=== PATIENT | male | born 1955 | race Caucasian/White ===

== ENCOUNTER 2016-09-01 11:48 | Inpatient (IN) | payer OTHER ==
--- NOTE | ~2016-09-01 | CR20 ---
[facility] A Service of [facility] & [facility] RADIOLOGY TEXT RESULTS PATIENT: CONRADO HARRIS LOCATION: [facility] : 53 UNIT #: [id number] AGE: [address]: Karan Linder DO SEX: M ORDER DR: [id number] [facility] [address] [address] [place], [place] [address] [id number] E MR#: [id number] Acc #: [id number] NAME: CONRADO HARRIS : 1955 SEX: M STUDY DATE/TIME: 09/01/2016 12:16 UNIT: CFTX ROOM: STUDY DESCRIPTION: CR Ankle Min 3 Views Lt Attending Physician: Selena Merritt P.A.-C. Ordering Physician: Selena Merritt P.A.-C. Primary Care Physician: Primary Care Physician No MEDICAL IMAGING REPORT This report is preliminary unless electronic signature is present EXAM Ankle left 3 views 09/01/2016 1216 hours HISTORY 60-year-old man with pain and swelling of the ankle. Pain last night with difficulty weightbearing. History of fracture 30 years ago with fixation. COMPARISON None available. FINDINGS AP, lateral and oblique views demonstrate a plate and screw fixator through the distal fibula with no evidence of acute fracture, hardware failure or infection around the hardware. There is diffuse soft tissue swelling medially and laterally. There is cystic change in the medial malleolus and some spurring at the ankle joint suggesting secondary osteoarthritis. The talar dome is intact. IMPRESSION 1. Diffuse soft tissue swelling medial greater than lateral with plate and screw fixation of prior, healed distal fibular fracture. No hardware failure or acute fracture is seen. 2. There is spurring and degenerative change at the ankle joint with talar dome intact. 3. There is cystic lucency through the medial malleolus with overlying soft tissue swelling. This is felt likely chronic degenerative change. If the patient has an open wound, consider osteomyelitis. STAT * RESULT Dictated by... [facility] A Service of [facility] & [facility] RADIOLOGY TEXT RESULTS PATIENT: CONRADO HARRIS LOCATION: [facility] : 53 UNIT #: [id number] AGE: [address]: Karan Linder DO SEX: M ORDER DR: Jeanine Leo M.D. THIS IS AN ELECTRONICALLY VERIFIED REPORT Jeanine Leo M.D. at 09/01/2016 2:31 PM DIAMOND/ciara TD: 09/01/2016 12:55 JOB #: [id number] MEDICAL IMAGING REPORT Page 1 of 1 COPY
--- NOTE | ~2016-09-01 | US85 ---
[facility] A Service of [facility] / [facility] RADIOLOGY TEXT RESULTS PATIENT: CONRADO HARRIS LOCATION: [facility] : 53 UNIT #: [id number] AGE: [address]: Fadia Almonte MD SEX: M ORDER DR: [id number] [place] [id number] [facility]. [place], [place] [address] [id number] E MR#: [id number] Acc #: [id number] NAME: CONRADO HARRIS : 1955 SEX: M STUDY DATE/TIME: 09/01/2016 15:00 UNIT: [facility] ROOM: STUDY DESCRIPTION: [employer] Attending Physician: Karan Linder D.O. Ordering Physician: Karan Linder D.O. Primary Care Physician: No Primary Care Physician MEDICAL IMAGING REPORT This report is preliminary unless electronic signature is present EXAM Left lower extremity Doppler venous ultrasound DATE 09/01/2016 HISTORY Left lower extremity swelling/edema for 1 day. COMPARISON None. TECHNIQUE Venous ultrasound examination of the left lower extremity was performed using grayscale, spectral Doppler and color flow Doppler imaging. FINDINGS The examination is negative. There is no evidence of left lower extremity deep venous thrombus from the groin to the lower calf. Visualized greater saphenous vein is also patent. IMPRESSION Negative examination. No evidence of left lower extremity deep venous thrombosis. Dictated by... Britni Wu M.D. THIS IS AN ELECTRONICALLY VERIFIED REPORT Britni Wu M.D. at 09/02/2016 6:13 AM LLPeter/maren [facility] A Service [facility] RADIOLOGY TEXT RESULTS PATIENT: CONRADO HARRIS LOCATION: [facility] 475-01 : 53 UNIT #: [id number] AGE: [address]: Fadia Almonte MD SEX: M ORDER DR: TD: 09/01/2016 16:10 JOB #: [id number] MEDICAL IMAGING REPORT Page 1 of 1 COPY
--- NOTE | ~2016-09-01 | DS ---
Unit #: [id number] #: [id number] Patient: CONRADO QUINTERO [id number] [address] [address] [id number] I MR#: [id number] NAME: CONRADO QUINTERO ROOM: 475 Age: Sex: M Admission Date: 09/01/2016 : 1955 Discharge Date: 09/02/2016 Attending Physician: Gudelia Almonte M.D. Primary Care Physician: Primary Care Physician No DISCHARGE SUMMARY ADMITTING DIAGNOSIS Left ankle swelling and pain. DISCHARGE DIAGNOSIS Left ankle pain/infection. ATTENDING AND SERVICES CARING FOR PATIENT Gudelia Almonte MD PROCEDURE Aspiration of left ankle joint. HISTORY Mr. Quintero is a 60-year-old white male who presented to the emergency room for complaints of left ankle pain and swelling, which started one day ago. The patient reports he has noticed swelling and redness surrounding his ankle joint intermittently for some time now. The patient denies new injury or trauma to the ankle. He does report pain with movement. The patient has had a history of prior injury to his left ankle approximately 30 years ago, where a plate/screws were placed in the left distal fibula. The patient had been unable to bear weight on his left lower extremity for the past day. He does live alone, and he has been a smoker for the past 26 years. He works in construction. The patient's left ankle joint was aspirated in the emergency room and a STAT Gram stain, total cell count with diff, crystal analysis, aerobic culture and sensitivities and anaerobic culture and sensitivities of the joint aspirate was performed. Uric acid level was drawn on 09/01 in the emergency room and found to be 6.2. BMP was within normal limits, white blood cell count was 10.8, and the CRP was 4.5. And CBC, CRP and BMP labs were instructed to be ordered and the patient was started on IV vancomycin and Zosyn, as well as normal saline fluids upon admittance from the emergency room. The patient was placed NPO and was put on ibuprofen 600 mg for pain and told to be nonweightbearing to his left lower extremity. On 09/02, the patient appeared to be doing very well. He stated the pain and swelling in his left ankle had significantly improved since being on the antibiotics. He reported increased range of motion in his toes and ankle. On 09/02, his Gram stain revealed occasional white blood cells, no organisms visible, hazy fluid and TNC of 20,921. CBC was within normal limits, BMP was within normal limits, and the CRP was 6.3. After labs returned, the patient was found stable for discharge. In regards to imaging, while admitted, a Doppler of the left lower extremity was performed and found to be negative, with no evidence of DVT. Unit #: [id number] #: [id number] Patient: CONRADO QUINTERO X-ray of the left ankle revealed diffuse soft tissue swelling with plate/screw fixation of the previously healed fracture. No hardware failure or acute fracture seen. Cystic lucency through the medial malleolus with soft tissue swelling was evident. CONDITION AT DISCHARGE Stable. DISPOSITION The patient will be discharged home. He may weight-bear as tolerated of the left lower extremity and use crutches if needed. He is to return to clinic in 7 days for follow up. DISCHARGE MEDICATIONS 1. Keflex 500 mg 1 tab p.o. q.i.d. x10 days, dispense 40, zero refills. 2. Ibuprofen [id number] p.r.n. pain. DIET The patient may resume normal diet. DISCHARGE INSTRUCTIONS Per discussion with Dr. Almonte, the patient may be discharged home today. The patient may now weight-bear as tolerated to his left lower extremity. We would like for him to follow up in the office with Dr. Almonte in one week. He is to call for an appointment. A script for oral antibiotics or Keflex was written for him to take 4 times daily for 10 days. We would also like for him to use ibuprofen as needed for pain relief. The patient should call our clinic prior to his scheduled office visit should any further questions or concerns. Dictated by... Priscilla Corado PA-C for Maida Flores TD: 09/07/2016 20:57 JOB #: [id number] CC: Vaishali Oakley (Vascular Technician) DISCHARGE SUMMARY Page 1 of 1 X X DISCHARGE SUMMARY
--- NOTE | ~2016-09-01 | HP ---
Unit #: [id number] #: [id number] Patient: CONRADO HARRIS [id number] [address] [place], [place] [address] [id number] I MR#: [id number] NAME: CONRADO HARRIS ROOM: 60586 Age: 60 Sex: M Admission Date: 09/01/2016 : 1955 Attending Physician: Gudelia Almonte M.D. Primary Care Physician: No Primary Care Physician HISTORY AND PHYSICAL CHIEF COMPLAINT Left ankle swelling/pain. HISTORY OF PRESENT ILLNESS This is a 60-year-old white male who presented to the emergency room today for complaints of left ankle pain which presented/started last night. The patient reports he noticed the swelling and redness surrounding his ankle joint. The patient denies new injury/trauma. He does report pain with movement. Patient has a history of prior injury to his left ankle, approximately 30 years ago. A plate/screws were placed in his distal fibula. The patient state he is unable to bear weight on his left lower extremity at this time. Patient reports that he lives alone. He is a previous smoker of about 26 years and currently works in construction. PAST MEDICAL HISTORY None. PAST SURGICAL HISTORY Ankle surgery approximately 30 years ago with plate placed in distal fibula. ALLERGIES No known drug allergies. HOME MEDICATIONS None. SOCIAL HISTORY Previous smoker, quit approximately 26 years ago, lives alone, works in construction. FAMILY HISTORY Not relevant. REVIEW OF SYSTEMS Negative except for symptoms reported in HPI. PHYSICAL EXAMINATION GENERAL: On physical exam he is in no acute distress, alert and oriented x3. HEART: Regular rate and rhythm. LUNGS: Nonlabored breathing. MUSCULOSKELETAL: Left lower extremity palpable dorsalis pedis and Unit #: [id number] #: [id number] Patient: CONRADO HARRIS posterior tibialis pulses, limited range of motion of the ankle joint secondary to pain, sluggish capillary refill, moderate swelling/warmth surrounding the medial and anterior ankle joint. Neurovascularly intact. Calf nontender. PSYCHIATRIC: Mood/affect within normal limits. NEUROLOGIC: Cranial nerves intact. DIAGNOSTIC STUDIES LABORATORY: Uric acid 6.2, BMP within normal limits, white blood cell count 10.8, CRP of 4.5. IMAGING: Ultrasound/Doppler of the left lower extremity negative exam, no evidence of DVT. X-ray of the left lower extremity: Diffuse soft tissue swelling with plate/screw fixation of a prior healed fracture, no hardware failure/acute fracture seen, spurring/degenerative change noted, talar dome intact. Cystic lucency through the medial malleolus with soft tissue swelling, likely chronic changes. ASSESSMENT AND PLAN A 60-year-old white male who we will admit today to 4C to Dr. Almonte to rule out septic joint. The patient's left ankle joint was aspirated today in the emergency room and aspirate was sent for a STAT Gram stain, total cell count, aerobic and anaerobic cultures of the aspirate. Will start IV fluids and IV antibiotics. The patient is to remain nonweightbearing to his left lower extremity. He is to have ibuprofen 600 mg q.6 h. p.r.n. pain. The patient is to remain n.p.o. pending labs. In the a.m. we would like a CBC, CRP and BMP to also be ordered. Dictated by Priscilla Corado PA-C for Maida Flores/asha TD: 09/01/2016 21:31 JOB #: [id number] CC: [facility] HISTORY AND PHYSICAL Page 1 of 1 X X HISTORY AND PHYSICAL
--- NOTE | ~2016-09-01 | DS ---
Unit #: [id number] #: [id number] Patient: CONRADO HARRIS [id number] [address] [place], [place] [address] [id number] MR#: [id number] NAME: CONRADO HARRIS ROOM: [facility] Age: 60 Sex: M Admission Date: 09/01/2016 : 1955 Discharge Date: 09/02/2016 Attending Physician: Gudelia Almonte M.D. Primary Care Physician: No Primary Care Physician DISCHARGE SUMMARY ADMITTING DIAGNOSIS Left ankle swelling and pain. DISCHARGE DIAGNOSIS Left ankle pain/infection. INVASIVE DIAGNOSTIC PROCEDURES None. BRIEF HISTORY A 60-year-old white male who presented to the emergency room for complaints of left ankles pain and swelling, which started one day ago. The patient reports he has noticed swelling and redness surrounding his ankle joint intermittently for some time now. The patient denies new injury or trauma to the ankle. He does report pain with movement. The patient has had a history of prior injury to his left ankle approximately 30 years ago where a plate/screws were placed in the distal fibula. The patient had been unable to bear weight on his left lower extremity. He does live alone, and he is a smoker for the past 26 years. He works in construction. The patient's left ankle joint was aspirated and then we performed a STAT Gram stain, total cell count with dif, crystal analysis, aerobic C and S and anaerobic C and S of the joint aspirate. A uric acid level was drawn on 09/01 and was found to be 6.2. BMP was within normal limits, the white blood cells were 10.8, and the CRP was 4.5. In regard to imaging, an ultrasound/Doppler of the left lower extremity was found to be negative with no evidence of a DVT. X-ray of the left ankle revealed diffuse soft tissue swelling with plate/screw fixation of a previously healed fracture. No hardware failure or acute fracture seen. Cystic lucency through the medial malleolus with soft tissue swelling was evident. We did order an a.m. CBC, CRP and BMP, and the patient was started on IV vancomycin and Zosyn, as well as normal saline fluids. The patient was placed NPO and was put on ibuprofen 600 mg for pain and told to be nonweightbearing to his left lower extremity. On 09/02 the patient appeared to be doing very well. He stated the pain and swelling in his left ankle had significantly improved since being on the antibiotics. He reported increased range of motion in his toes and ankle. He stated that he was hesitant to bear weight on his left lower extremity. Unit #: [id number] #: [id number] Patient: CONRADO HARRIS On 09/02 his Gram stain revealed occasional white blood cells, no organism, hazy fluid and TNC of 20,921. CBC was within normal limits, BMP was within normal limits, and the CRP was 6.3. CONDITION AT DISCHARGE Stable. DISPOSITION The patient will be discharged home today. DISCHARGE MEDICATIONS 1. Keflex 500 mg 1 tab p.o. t.i.d. x10 days. We will dispense 30 with 0 refills. 2. He may use ibuprofen as needed for pain relief. DIET The patient may resume normal diet. DISCHARGE INSTRUCTIONS AND FOLLOWUP 1. Per discussion with Dr. Almonte, the patient may be discharged home today. He is stable to discharge from ortho standpoint. 2. The patient may now weightbear as tolerated to his left lower extremity. 3. We would like for him to follow up in the office with Dr. Almonte in 10-14 days. He is to call for an appointment. 4. A script for oral antibiotics (Keflex) was written for him to take 3 times daily for 10 days. We would also like for him to use ibuprofen as needed for pain relief. 5. The patient should call our clinic prior to his scheduled office visit for further questions or concerns. Dictated by... Priscilla Corado PA-C for Maida Flores/yohan TD: 09/05/2016 09:08 JOB #: [id number] DISCHARGE SUMMARY Page 1 of 1 X X DISCHARGE SUMMARY
--- NOTE | ~2016-09-01 | DS ---
Unit #: [id number] #: [id number] Patient: CONRADO HARRIS [id number] [address] [place], [place] [address] [id number] MR#: [id number] NAME: CONRADO HARRIS ROOM: [facility] Age: 60 Sex: M Admission Date: 09/01/2016 : 1955 Discharge Date: 09/02/2016 Attending Physician: Gudelia Almonte M.D. Primary Care Physician: Richa Primary Care Physician DISCHARGE SUMMARY REVISED REPORT ADDENDUM/CORRECTION ADMITTING DIAGNOSIS Left ankle swelling and pain. DISCHARGE DIAGNOSIS Left ankle pain/infection. INVASIVE DIAGNOSTIC PROCEDURES None. BRIEF HISTORY A 60-year-old white male who presented to the emergency room for complaints of left ankles pain and swelling, which started one day ago. The patient reports he has noticed swelling and redness surrounding his ankle joint intermittently for some time now. The patient denies new injury or trauma to the ankle. He does report pain with movement. The patient has had a history of prior injury to his left ankle approximately 30 years ago where a plate/screws were placed in the distal fibula. The patient had been unable to bear weight on his left lower extremity. He does live alone, and he is a smoker for the past 26 years. He works in construction. The patient's left ankle joint was aspirated and then we performed a STAT Gram stain, total cell count with dif, crystal analysis, aerobic C and S and anaerobic C and S of the joint aspirate. A uric acid level was drawn on 09/01 and was found to be 6.2. BMP was within normal limits, the white blood cells were 10.8, and the CRP was 4.5. In regard to imaging, an ultrasound/Doppler of the left lower extremity was found to be negative with no evidence of a DVT. X-ray of the left ankle revealed diffuse soft tissue swelling with plate/screw fixation of a previously healed fracture. No hardware failure or acute fracture seen. Cystic lucency through the medial malleolus with soft tissue swelling was evident. We did order an a.m. CBC, CRP and BMP, and the patient was started on IV vancomycin and Zosyn, as well as normal saline fluids. The patient was placed NPO and was put on ibuprofen 600 mg for pain and told to be nonweightbearing to his left lower extremity. On 09/02 the patient appeared to be doing very well. He stated the pain and swelling in his left ankle had significantly improved since being on the antibiotics. He Unit #: [id number] #: [id number] Patient: CONRADO HARRIS reported increased range of motion in his toes and ankle. He stated that he was hesitant to bear weight on his left lower extremity. On 09/02 his Gram stain revealed occasional white blood cells, no organism, hazy fluid and TNC of 20,921. CBC was within normal limits, BMP was within normal limits, and the CRP was 6.3. CONDITION AT DISCHARGE Stable. DISPOSITION The patient will be discharged home today. DISCHARGE MEDICATIONS 1. Keflex 500 mg one tab p.o. q.i.d. x10 days, dispense 40, zero refills. 2. Ibuprofen over the counter p.r.n. pain may be used. DIET The patient may resume normal diet. DISCHARGE INSTRUCTIONS AND FOLLOWUP 1. Per discussion with Dr. Almonte, the patient may be discharged home today. He is stable to discharge from ortho standpoint. 2. The patient may now weightbear as tolerated to his left lower extremity. 3. We would like for him to follow up in the office with Dr. Almonte in one week. He is to call for an appointment. 4. A script for oral antibiotics (Keflex) was written for him to take 3 times daily for 10 days. We would also like for him to use ibuprofen as needed for pain relief. 5. The patient should call our clinic prior to his scheduled office visit for further questions or concerns. Dictated by... Priscilla Corado PA-C for Gudelia Almonte M.D. BECKY/yohan TD: 09/05/2016 09:08 JOB #: [id number] ADDENDUM DISCHARGE INSTRUCTIONS After speaking further with Dr. Almonte, instead of following up in 10-14 days, we would like to see him back in our office in one week. ADDENDUM If you could go back into his note and change the discharge medication, we would like to change the dosage of the Keflex, so if you could totally remove the previously dictated Keflex dosing and replace it with this: DISCHARGE MEDICATIONS 1. Keflex 500 mg one tab p.o. q.i.d. x10 days, dispense 40, zero refills. 2. Ibuprofen over the counter p.r.n. pain may be used. Unit #: [id number] #: [id number] Patient: CONRADO HARRIS Dictated by... VIOLETTA Scanlon TD: 09/05/2016 09:15 JOB #: [id number] Dictated by... Priscilla Corado PA-C for Maida Flores TD: 09/05/2016 09:22 JOB #: [id number] CC: Navi/khurram Please Delete Vaishali Oakley DISCHARGE SUMMARY Page 1 of 1 X X DISCHARGE SUMMARY
[2016-09-01 13:51] LABS: BASOPHIL# 0.1 X10e3 (0-0.3); BASOPHIL% 0.6 % (0-2.5); EOSINOPHIL# 0.9 X10e3 (0-0.7); EOSINOPHIL% 8.4 % (0.0-7.0); HEMATOCRIT 44.2 % (38.0-50.0); HEMOGLOBIN 14.4 gm/dL (13.0-16.0); LYMPHOCYTE% 18.3 % (17.0-45.0); MEAN CELL VOLUME 87.7 FL (83-96); MEAN CORPUSCULAR HEMOGLOBIN 28.5 PG (28-34); MEAN CORPUSCULAR HGB CONC 32.5 g/dL (30-36); MONOCYTE# 0.9 X10e3 (0-1.0); MONOCYTE% 8.7 % (3.0-12.0); NEUTROPHIL# 6.9 X10e3 (1.5-7.1); PLATELET COUNT 243 X10e3 (140-420); RED BLOOD COUNT 5.05 X10e (3.90-5.60); RED CELL DISTRIBUTION WIDTH 13.6 % (11.0-15.5); WHITE BLOOD COUNT 10.8 X10e3 (4.0-10.5)
[2016-09-01 13:53] LABS: DIFF IND NO
[2016-09-01 14:32] LABS: CALCIUM SERUM 9.2 mg/dL (8.4-10.2); GLOM FILT RATE Estimated 80.3 mL/min (>60)
[2016-09-01 18:18] LABS: BF CRYSTAL EXAM NO CRYSTALS SEEN; BF TOTAL NUCLEATED CELL COUNT 20921 CMM (0-100); BODY FLUID APPEARANCE HAZY; BODY FLUID SOURCE SYNOVIAL
[2016-09-01 18:19] LABS: BODY FLUID RBC 15542 CMM
[2016-09-02 01:58] LABS: BASOPHIL% 0.6 % (0-2.5); DIFF IND NO; EOSINOPHIL# 0.8 X10e3 (0-0.7); EOSINOPHIL% 9.6 % (0.0-7.0); HEMATOCRIT 38.1 % (38.0-50.0); HEMOGLOBIN 12.5 gm/dL (13.0-16.0); LYMPHOCYTE# 1.7 X10e3 (1.0-3.5); LYMPHOCYTE% 21.3 % (17.0-45.0); MEAN CELL VOLUME 86.3 FL (83-96); MEAN CORPUSCULAR HEMOGLOBIN 28.3 PG (28-34); MEAN CORPUSCULAR HGB CONC 32.8 g/dL (30-36); MEAN PLATELET VOLUME 8.6 FL (6.5-11.5); MONOCYTE# 0.7 X10e3 (0-1.0); MONOCYTE% 9.4 % (3.0-12.0); NEUTROPHIL# 4.6 X10e3 (1.5-7.1); NEUTROPHIL% 59.1 % (40-75); PLATELET COUNT 171 X10e3 (140-420); RED BLOOD COUNT 4.41 X10e (3.90-5.60); RED CELL DISTRIBUTION WIDTH 13.7 % (11.0-15.5); WHITE BLOOD COUNT 7.8 X10e3 (4.0-10.5)
[2016-09-02 02:23] LABS: CALCIUM SERUM 8.1 mg/dL (8.4-10.2); GLOM FILT RATE Estimated 80.3 mL/min (>60); POTASSIUM 3.5 mmol/L (3.5-5.1)
[2016-09-02] MEDS ORDERED: KEFLEX500 MG PO (14:07)
[2016-09-02] MEDS ORDERED: IBUPROFEN (14:11)
== END 2016-09-02 15:30 | disposition home or self-care (01) | DRG 550 ==
LOC: CFTX 11:48 → CED 11:48 → CFTX 12:42 → CED 12:42 → C4C 17:12 → CEDOF 17:12 → CED 17:12 → CEDOF 18:00 → CED 18:00 → CEDOF 21:43 → C5C 21:43 → C4C 21:47
PROVIDERS: Emergency Medicine; Orthopaedic Surgery; Physician Assistant
PROC: 0S9G3ZZ Drainage of Left Ankle Joint, Percutaneous Approach (ICD-10-PCS; principal; 2016-09-01)
DX: M00.872 Arthritis due to other bacteria, left ankle and foot (principal); M25.572 Pain in left ankle and joints of left foot; Z87.891 Personal history of nicotine dependence
CPT/HCPCS: 36415; 73610; 80048; 84550; 85025; 85652; 86140; 87070; 87075; 87205; 89051; 89060; 93971; 99285; J2543; J3370